=== PATIENT | female | born 2000 | race Caucasian/White ===

== ENCOUNTER 2024-07-31 22:30 | Emergency (ER) | payer OTHER, SELFPAY ==
[2024-07-31 22:40] VITALS: BP 139/89; PULSE 90; TEMP 36.9; O2SAT 100; BMI 22.3
--- NOTE | 2024-07-31 22:51 | PC.NURSE ---
per this patient i was given and patient a shot then i recapped the needle in the plastic cap, and the the needle bent
--- NOTE | 2024-07-31 23:25 | ED_ITS ---
HPI HPI - General Adult General Chief complaint: Needle Stick Stated complaint: needle stick Time Seen by Provider: 07/31/24 22:38 Source: patient Mode of arrival: walk-in Limitations: no limitations History of Present Illness HPI narrative: The patient is a healthy 23-year-old female who presents to the emergency department for a occupational needlestick into her left thumb. The patient is employed as a nurse at [employer]. The patient was vaccinating a with a TB syringe and when she tried to recap the needle it went through her glove and poked her left thumb pad. The patient stated that she removed her gloves and then washed it with soap and water and then used hand scanner supervisor. The patient immediately reported the incident to her blueprinting and photocopy supervisor and then presented to the emergency department for further evaluation and care. The patient indicates to me that the mother of the baby tested negative for HIV and hepatitis previously. Patient states that the pain is negligible. She is concerned about her exposure. She would like to consider prophylaxis. The patient is unaware of her last tetanus vaccination. This occurred just prior to the patient arriving to the emergency department. Related Data Home Medications ?Medication ?Instructions ?Recorded ?Confirmed norethindrone 1 mg-ethinyl tab 07/31/24 estradiol 20 mcg (21)-iron 75 mg (7) tablet (Aurovela Fe 1-20 (28)) Previous Rx's ?Medication ?Instructions ?Recorded bictegravir 30 mg-emtricitabine 1 tab PO DAILY #28 tabs 08/01/24 120 mg-tenofovir alafenam 15 mg tablet (Biktarvy) Allergies Allergy/AdvReac Type Severity Reaction Status Date / Time No Known Drug Allergies Allergy Verified 07/31/24 22:38 Opioid HPI Opioid Management Most Recent Opioid Data: Last Pain Scale 2 07/31/24 22:45 07/31/24 Last ED Pain Assessment 07/31/24 22:45 Review of Systems ROS Status of ROS 10 or more systems reviewed and unremark able except as noted in history and below PFSH PFSH Social History Little interest or pleasure in doing things: not at all Feeling down, depressed, or hopeless: not at all Exam Narrative Exam Narrative: Prior to examining the patient, I have washed with hospital approved and provided Antiseptic Hand Residential Therapist and have also applied gloves.? Prior to touching the patient, I asked for consent to examine the patient.? General: Alert and oriented, well nourished, mild distress. Eye: PERRL, EOMI, normal conjunctiva. HENT: Normocephalic, normal hearing, moist oral mucosa, no scleral icterus, Musculoskeletal: Normal range of motion and strength, no tenderness or swelling. Skin: Skin is warm, dry and pink, no rashes or lesions. There is evidence of a small puncture in the patient's left thumb pad. No active bleeding at this time. Neurologic: Awake, alert, and oriented X3, CN II-XII intact. Psychiatric: Cooperative, appropriate mood and affect.? Following the conclusion of the examination, I have washed my hands thoroughly after removing examination gloves. Constitutional Vital Signs, click to edit/add: Last Vital Signs Temp 98.4 F 07/31/24 22:40 Pulse 90 07/31/24 22:40 Resp 18 07/31/24 22:40 BP 139/89 07/31/24 22:40 Pulse Ox 100 07/31/24 22:40 O2 Del Method Room Air 07/31/24 22:40 Course Course Hospital Course: The patient was given a Tdap vaccination. Reevaluation(s) Reevaluation #1: Prior to discharge, I went in and explained to the patient all of the contacts that I have made regarding postexposure prophylaxis. Patient understands that she is going to go to her pharmacy and pick up driver the medication. We do not have the medication at our facility. The patient overall is nontoxic and in no acute distress. She does not need coverage for cellulitis. The patient is going to be discharged in stable condition. She is aware that she is going to have to follow-up in 6 weeks, 3 months, and 6 months. She will call the number provided by her blueprinting and photocopy supervisor for follow-up. Consultations Consultation #1: Pharmacy called at [phone]. they have no protocol for [facility] for PEP. They had no recommendations to provide for me for PEP either. Time: 23:08 Consultation #2: Contacted National PEP line and it was closed until next business day. Time: 23:30 Consultation #3: Contacted [facility]. Written guidelines suggests Biktarvy once daily. It is better for compliance. Not on formulary here. Time: 23:42 Additional Consultation(s): The [facility] lab also called me and indicated that they were going to call infection control regarding the baby. They cannot do the proper testing on the baby given that there is no protocol in the amount of blood that would be necessary to do these testing would be inappropriate for a child to have drawn. The volume would be excessive. Vital Signs Vital signs: Vital Signs Temperature 98.4 F 07/31/24 22:40 Pulse Rate 90 07/31/24 22:40 Respiratory Rate 18 07/31/24 22:40 Blood Pressure 139/89 07/31/24 22:40 Pulse Oximetry 100 07/31/24 22:40 Oxygen Delivery Method Room Air 07/31/24 22:40 Temperature 98.4 F 07/31/24 22:40 Pulse Rate 90 07/31/24 22:40 Respiratory Rate 18 07/31/24 22:40 Blood Pressure 139/89 07/31/24 22:40 Pulse Oximetry 100 07/31/24 22:40 Oxygen Delivery Method Room Air 07/31/24 22:40 Medical Decision Making MDM Narrative Medical decision making narrative: The patient had a needlestick. The needlestick was with a low risk patient, but not no risk. It was through a glove with a small bore needle that was used to administer a vaccination, as opposed to drawing blood. I think the patient is a very low risk for elsie a blood-borne illness. The patient is aware she is low risk but still would like to proceed with obtaining postexposure prophylaxis. She is aware that she should refrain from sexual activity while taking the medication until the advisement of her physician or occupational health facility. Differential Diagnosis Differential Diagnosis: Blood-borne pathogen exposure, cellulitis, foreign body Medical Records Medical records reviewed: Yes I reviewed the patient's medical records Lab Data Lab results reviewed: Yes I reviewed the patient's lab results Discharge Plan Discharge Chief Complaint: Needle Stick Clinical Impression: Needle stick injury of finger of left hand Patient Disposition: Home, Self-Care Time of Disposition Decision: 00:09 Condition: Good Mode of Transportation: Private Vehicle Prescriptions / Home Meds: New Biktarvy 30-120-15 mg tablet 1 tab PO DAILY Qty: 28 0RF Rx Instructions: Post-exposure prophylaxis No Action norethindrone-e.estradiol-iron [Aurovela Fe 1-20 (28)] 1 mg-20 mcg (21)/75 mg (7) tablet Print Language: Bahamian Instructions: Needle Stick Injuries (ED), PEP Therapy (DC) Additional Instructions: Postexposure prophylaxis medication should be started within 72 hours of the injury. The medication that I am prescribing you will be available for you at your pharmacy. You still must contact the employee health line as recommended by your unit/blueprinting and photocopy supervisor. Take your medications until completed. Also, it is recommended that you get repeat testing for HIV, hepatitis B, and hepatitis C at 6 weeks postexposure, 3 months postexposure and 6 months postexposure. Referrals: Physician,Non-Staff, MD [Primary Care Provider] - 1 week Discharge Date/Time: 08/01/24 00:25
--- NOTE | 2024-07-31 23:29 | PC.NURSE ---
i called roundhouse firer/fireman for tis patient' medication
[2024-07-31] MEDS: ADACEL DIPH,PERTUSS(ACELL),TET VAC/PF 0.5 ML ADULT SYRINGE IM (23:46)
--- NOTE | 2024-08-01 00:26 | PC.NURSE ---
i gave this patient verbal and paper discharge orders and she voices yes to understanding these. at time of discharge this patient voices no concerns and shows no signs of distress
[2024-08-02 05:07] LABS: HIV Ab/p24 Ag Screen Non Reactive (Non Reactive)
[2024-08-02 06:11] LABS: HCV Antibody Non Reactive (Non Reactive); Hepatitis B Surf Ab Quant <3.5 mIU/mL (Immunity>10)
[2024-08-02 11:08] LABS: Rapid Plasma Reagin, Quant Non Reactive titer (NonRea<1:1)
== END 2024-08-01 00:25 | disposition home or self-care (01) ==
PROVIDERS: Emergency Provider Emergency Medicine
DX: S61.032A Puncture wound without foreign body of left thumb without damage to nail, initial encounter (principal); W46.0XXA Contact with hypodermic needle, initial encounter; Z77.21 Contact with and (suspected) exposure to potentially hazardous body fluids; Z23 Encounter for immunization
CPT/HCPCS: 36415; 86317; 86592; 86803; 87389; 90471; 90715; 99283